=== PATIENT | female | born 1975 | race African-American/Black ===

== ENCOUNTER 2018-10-13 11:51 | Emergency (ER) | payer OTHER ==
[2018-10-13 12:18] VITALS: TEMP 98.1; BMI 20.3
--- NOTE | 2018-10-13 12:49 | PDOC ---
History of Present Illness - General History Source: Patient Exam Limitations: No Limitations - History of Present Illness Initial Comments: 10/13/18 14:59 The patient is a 43 yo Female with a medical history of depression, anxiety, and asthma, who presents to the ED with sudden onset of left mid to lower back pain. She states the pain is localized to her left back without radiation. She states the pain is sharp, 7/10 in severity, and exacerbated when sitting down and twisting her torso. She states she feels off balance with standing this morning which prompted her ED visit. She denies experiencing this back pain in the past. She denies use of OTC medications for pain. She denies trauma or injury. Secondarily, she reports increased urinary frequency and chills. Social Hx: 1ppd smoker, occasional marijuana, occasional ETOH <Chloe Betancourt - Last Filed: 10/13/18 14:59> - General History Source: Patient Exam Limitations: No Limitations <Stacie Vazquez - Last Filed: 10/13/18 18:04> - General Chief Complaint: Pain, Acute Stated Complaint: ABD PAIN Time Seen by Provider: 10/13/18 12:49 Past History <Chloe Betancourt - Last Filed: 10/13/18 14:59> - Past Medical History COPD: No Psychiatric Problems: Yes - Suicide/Smoking/Psychosocial Hx Smoking History: Current every day smoker Have you smoked in the past 12 months: Yes Number of Cigarettes Smoked Daily: 20 Information on smoking cessation initiated: No Hx Alcohol Use: No Drug/Substance Use Hx: No <Stacie Vazquez - Last Filed: 10/13/18 18:04> - Past Medical History Allergies/Adverse Reactions: Allergies Allergy/AdvReac Type Severity Reaction Status Date / Time No Known Allergies Allergy Verified 10/13/18 12:10 Home Medications: Ambulatory Orders Lidocaine 5% Patch [Lidoderm Patch -] 1 patch TP DAILY PRN #30 patch 10/13/18 Methocarbamol [Robaxin -] 500 mg PO TID PRN #30 tablet 10/13/18 Naproxen Sodium 220 mg PO BID PRN #30 tablet 10/13/18 Quetiapine Fumarate "Xr" [Seroquel Xr -] 300 mg PO HS 10/13/18 Sertraline HCl [Zoloft] 0 mg PO BID 10/13/18 Review of Systems - Review of Systems Able to Perform ROS?: Yes Comments:: 10/13/18 15:03 CONSTITUTIONAL: (+) chills, Absent: fever,no fatigue EYES: Absent: visual changes ENT: Absent: ear pain, no sore throat CARDIOVASCULAR: Absent: chest pain, no palpitations RESPIRATORY: Absent: cough, no SOB GASTROINTESTINAL: Absent: abdominal pain, no nausea, no vomiting, no constipation, no diarrhea GENITOURINARY: (+) frequency, Absent: dysuria, no hematuria MUSCULOSKELETAL: (+) back pain, Absent: no arthralgia, no myalgia SKIN: Absent: rash NEURO: Absent: headache <Chloe Betancourt - Last Filed: 10/13/18 14:59> *Physical Exam - Vital Signs Last Vital Signs Temp Pulse Resp BP Pulse Ox 98.1 F 71 20 141/97 100 10/13/18 12:03 10/13/18 12:03 10/13/18 12:03 10/13/18 12:03 10/13/18 12:03 - Physical Exam Comments: 10/13/18 15:04 GENERAL: The patient is in no acute distress. HEAD: Normal with no signs of trauma. EYES: PERRLA, EOMI, sclera anicteric, conjunctiva clear. ENT: Ears normal, nares patent, oropharynx clear without exudates. Moist mucous membranes. NECK: Normal range of motion, supple without lymphadenopathy, JVD, or masses. LUNGS: Breath sounds equal, clear to auscultation bilaterally. No wheezes, and no crackles. HEART:Regular rate and rhythm, normal S1 and S2 without murmur, rub or gallop. ABDOMEN: Soft, nontender, normoactive bowel sounds. No guarding, no rebound. No masses palpable. EXTREMITIES: Normal range of motion, no edema. No clubbing or cyanosis. No erythema, or tenderness. NEUROLOGICAL: Cranial nerves II through XII grossly intact. Normal speech. No focal neurological deficits. MUSCULOSKELETAL: Back non-tender to palpation, no CVA tenderness. Able to flex knees and hips without pain reproduction. No pain on passive assisted straight leg raise, however, pain elicited with active unassisted straight leg raise bilaterally. SKIN: Warm, Dry, normal turgor, no rashes or lesions noted. <Chloe Betancourt - Last Filed: 10/13/18 14:59> - Vital Signs Last Vital Signs Temp Pulse Resp BP Pulse Ox 98.1 F 71 20 141/97 100 10/13/18 12:03 10/13/18 12:03 10/13/18 12:03 10/13/18 12:03 10/13/18 12:03 <Stacie Vazquez - Last Filed: 10/13/18 18:04> Moderate Sedation - Procedure Monitoring Vital Signs: Procedure Monitoring Vital Signs Temperature 98.1 F 10/13/18 12:03 Pulse Rate 71 10/13/18 12:03 Respiratory Rate 20 10/13/18 12:03 Blood Pressure 141/97 10/13/18 12:03 O2 Sat by Pulse Oximetry (%) 100 10/13/18 12:03 <Chloe Betancourt - Last Filed: 10/13/18 14:59> - Procedure Monitoring Vital Signs: Procedure Monitoring Vital Signs Temperature 98.1 F 10/13/18 12:03 Pulse Rate 71 10/13/18 12:03 Respiratory Rate 20 10/13/18 12:03 Blood Pressure 141/97 10/13/18 12:03 O2 Sat by Pulse Oximetry (%) 100 10/13/18 12:03 <Stacie Vazquez - Last Filed: 10/13/18 18:04> ED Treatment Course - LABORATORY CBC & Chemistry Diagram: 10/13/18 13:30 10/13/18 13:30 - ADDITIONAL ORDERS Additional order review: Laboratory Results 10/13/18 10/13/18 13:30 13:30 Sodium 136 Potassium 5.1 Chloride 105 Carbon Dioxide 28 Anion Gap 4 L BUN 10 Creatinine 0.8 Creat Clearance w eGFR 79.05 Random Glucose 81 Calcium 9.1 Total Bilirubin 0.5 AST 28 ALT 16 Alkaline Phosphatase 67 LD Total 396 H Total Protein 7.7 Albumin 3.8 Serum , Qual Negative 10/13/18 13:30 RBC 3.90 MCV 100.6 H MCHC 34.9 RDW 13.7 MPV 7.3 L Neutrophils % 62.1 Lymphocytes % 27.8 Monocytes % 8.0 Eosinophils % 1.3 Basophils % 0.8 - Medications Given in the ED: ED Medications Discontinued Medications Generic Name Dose Route Start Last Admin Trade Name Freq PRN Reason Stop Dose Admin Methocarbamol 500 mg 10/13/18 13:03 10/13/18 13:15 Robaxin - PO 10/13/18 13:04 500 mg ONCE ONE Administration Morphine Sulfate 4 mg 10/13/18 13:03 10/13/18 13:30 Morphine Injection - IVPUSH 10/13/18 13:04 4 mg ONCE ONE Administration <Chloe Betancourt - Last Filed: 10/13/18 14:59> - LABORATORY CBC & Chemistry Diagram: 10/13/18 13:30 10/13/18 13:30 <Stacie Vazquez - Last Filed: 10/13/18 18:04> Medical Decision Making - Medical Decision Making 10/13/18 15:08 43 yo F presenting to the ER with left flank pain Symptoms began yesterday Pain is 7/10 no radiation No dysuria, no hematuria No trauma No heavy lifting No fevers or chills Laboratory Tests 10/13/18 10/13/18 10/13/18 13:30 13:30 13:30 WBC 4.8 Hgb 13.7 Hct 39.3 Plt Count 259 BUN 10 Creatinine 0.8 Serum , Qual Negative CT pending 10/13/18 17:57 CT demonstrates no SBO, there are dilated small bowel loops left upper abdomen, no diverticulitis, no appendicitis Scant free fluid in pelvis Right ovarian cystic lesion Will discharge to home Pt has follow up with PMD tomorrow Likely musculoskeletal pain Analgesia <Stacie Vazquez - Last Filed: 10/13/18 18:04> *DC/Admit/Observation/Transfer - Attestations Scribe Attestion: 10/13/18 15:07 Documentation prepared by Chloe Betancourt, acting as product manager medical device for Stacie Vazquez MD <Chloe Betancourt - Last Filed: 10/13/18 14:59> - Discharge Dispostion Decision to Admit order: No <Stacie Vazquez - Last Filed: 10/13/18 18:04> Diagnosis at time of Disposition: Back pain Qualifiers: Back pain location: back pain in unspecified location Chronicity: acute Back pain laterality: left Qualified Code(s): M54.9 - Dorsalgia, unspecified - Discharge Dispostion Disposition: HOME Condition at time of disposition: Stable - Patient Instructions Printed Discharge Instructions: DI for Back Strain or Sprain, DI for Back Spasm , DI for Back Pain With Sciatica, DI for Low Back Pain Additional Instructions: Thank you for coming in to the ER today Please be sure to keep your follow up with your primary care physician Please take medications as prescribed Please return to the ER for any other concerns or complaints - Post Discharge Activity Forms/Work/School Notes: Back to Work
[2018-10-13] MEDS ORDERED: morphine CARPU-JECT 4 MG/1 ML DISP.SYRIN IVPUSH ONE (13:03)
[2018-10-13] MEDS ORDERED: METHOCARBAMOL 500 MG TABLET PO ONE (13:03)
[2018-10-13] MEDS ORDERED: SODIUM CHLORIDE 1,000 ML IV STA (13:03)
[2018-10-13] MEDS ORDERED: morphine SULFATE 4 MG/ML VIAL ONE (13:14)
[2018-10-13] MEDS ORDERED: METHOCARBAMOL 500 MG TABLET ONE (13:17)
[2018-10-13 14:00] LABS: BASO % 0.8 % (0-2.0); EOS % 1.3 % (0-4.5); HEMATOCRIT 39.3 % (32.4-45.2); HEMOGLOBIN 13.7 GM/dL (10.7-15.3); LYMPH % 27.8 % (8-40); MCH 35.2 pg (25.7-33.7); MCHC 34.9 g/dl (32.0-36.0); MEAN CELL VOLUME 100.6 fl (80-96); MEAN PLT VOLUME 7.3 fl (7.5-11.1); NEUT % 62.1 % (42.8-82.8); PLATELET COUNT 259 K/MM3 (134-434); RDW 13.7 % (11.6-15.6); WHITE BLOOD COUNT 4.8 K/mm3 (4.0-10.0)
[2018-10-13 14:17] LABS: EPI CELLS 1.6 /HPF (FEW); URINE APPEARANCE CLEAR; URINE BACTERIA 52.506 /hpf (NEGATIVE); URINE BILIRUBIN NEGATIVE (<2.0 mg/dL); URINE CASTS 0 /hpf (NEGATIVE); URINE COLOR YELLOW; URINE GLUCOSE (UA) NEAGTIVE (NEGATIVE); URINE KETONE NEGATIVE (NEGATIVE); URINE LEUK ESTERASE NEGATIVE (NEGATIVE); URINE NITRITE NEGATIVE (NEGATIVE); URINE PROTEIN NEGATIVE (NEGATIVE); URINE RBC 1 /hpf (0-3); URINE UROBILINOGEN 0.2 mg/dL (0.2-1.0); URINE WBC 0 /hpf (3-5)
[2018-10-13 14:57] LABS: ALBUMIN 3.8 g/dl (3.4-5.0); ALK PHOS 67 U/L (45-117); ANION GAP 4 MMOL/L (8-16); BILIRUBIN,TOTAL 0.5 mg/dL (0.2-1); BLOOD UREA NITROGEN 10 mg/dL (7-18); CALCIUM 9.1 mg/dL (8.5-10.1); CHLORIDE 105 mmol/L (98-107); CO2 28 mmol/L (21-32); CREATININE 0.8 mg/dL (0.55-1.3); GLUCOSE,RANDOM 81 mg/dL (74-106); LDH 396 U/L (84-246); POTASSIUM 5.1 mmol/L (3.5-5.1); SGOT/AST 28 U/L (15-37); SGPT/ALT 16 U/L (13-61); SODIUM 136 mmol/L (136-145); TOT PROT 7.7 g/dl (6.4-8.2)
[2018-10-13 18:50] VITALS: BP 136/85; PULSE 73
== END 2018-10-13 18:40 | disposition home or self-care (01) ==
LOC: JER 11:51
PROC: 3E033NZ Introduction of Analgesics, Hypnotics, Sedatives into Peripheral Vein, Percutaneous Approach (ICD-10-PCS; principal; 2018-10-13)
PROC: 3E0337Z Introduction of Electrolytic and Water Balance Substance into Peripheral Vein, Percutaneous Approach (ICD-10-PCS; 2018-10-13)
DX: M54.9 Dorsalgia, unspecified (principal)
CPT/HCPCS: 36415; 74177-TC; 80053; 81003; 83615; 84703; 85025; 87086; 99282-25; J7030